=== PATIENT | female | born 1945 | race Caucasian/White ===

== ENCOUNTER 2019-10-19 18:10 | Emergency (ER) | payer BC, MEDICARE, OTHER ==
[~2019-10-19] VITALS: Ht 167.6 cm; Wt 59.1 kg
[~2019-10-19 18:10] MED LIST: ASPI81TA94 PO; CLA10T PO; CYCL-394 PO; DULO-31 PO; FAMO-1 PO; ILOP6TAB2 PO; IND25C PO; MORP30TA PO; MULT-32 PO; NABU-104 PO; NITR4.9S5 TL; NYST15CR30 TP; ONDA4SOL2 PO; OXYC-658 PO; PROP10TA10 PO; SENN8.6T19 PO; SIMV-42 PO; SUMA25TA35 PO; [UNRECOGNIZED DRUG - CODE] PO
--- NOTE | 2019-10-19 19:00 | NUR ---
PT IN HALLWAY AWAITING MD / UNABLE TO STRIGHT CATH IN HALLWAY AWAITING ROOM
[2019-10-19 19:40] LABS: BASOPHILS % (AUTO) 0.6 % (0-1); EOSINOPHILS # (AUTO) 0.3 X10'3 (0-0.9); EOSINOPHILS % (AUTO) 3.5 % (0-6); HEMATOCRIT 42.1 % (35.0-45.0); HEMOGLOBIN 14.1 g/dl (12.0-16.0); LYMPHOCYTES # (AUTO) 2.2 X10'3 (1.1-4.8); LYMPHOCYTES % (AUTO) 25.9 % (21-51); MEAN CORPUSCULAR HEMOGLOBIN 32.5 PG (27.0-31.0); MEAN CORPUSCULAR HGB CONC 33.6 g/dL (33.0-36.5); MEAN CORPUSCULAR VOLUME 96.8 FL (78-98); MONOCYTES # (AUTO) 0.9 X10'3 (0-0.9); MONOCYTES % (AUTO) 10.2 % (2-12); NEUTROPHILS # (AUTO) 5.1 X10'3 (1.8-7.7); NEUTROPHILS % (AUTO) 59.8 % (42-75); PLATELET COUNT 219 X10'3 (140-440); RED BLOOD COUNT 4.35 X10'6 (4.20-5.60); RED CELL DISTRIBUTION WIDTH 13.7 % (11.5-14.5); WHITE BLOOD COUNT 8.5 X10'3 (4.5-11.0)
[2019-10-19 19:51] LABS: ALANINE AMINOTRANSFERASE 15 U/L (12-78); ALBUMIN 3.7 G/DL (3.4-5.0); ALBUMIN/GLOBULIN RATIO 1.4 (1.1-1.5); ALKALINE PHOSPHATASE 97 IU/L (46-116); ANION GAP 4 (8-16); ASPARTATE AMINO TRANSFERASE 14 U/L (10-37); BILIRUBIN,TOTAL 0.5 MG/DL (0.1-1.0); BLOOD UREA NITROGEN 15 MG/DL (7-18); BUN/CREATININE RATIO 17.2 (6.6-38.0); CHLORIDE 106 MMOL/L (99-107); CREATININE 0.87 MG/DL (0.40-0.90); GLUCOSE 98 MG/DL (70-104); LIPASE 95 U/L (73-393); POTASSIUM 4.6 MMOL/L (3.5-5.1); SODIUM 142 MMOL/L (135-145); TOTAL CARBON DIOXIDE 32.4 MMOL/L (24-32); TOTAL PROTEIN 6.4 G/DL (6.4-8.2); eGFR 64 ML/MIN
--- NOTE | 2019-10-19 20:41 | NUR ---
PT STRAIGHT CATHED FOR URINE SAMPLE. PT TOLERATED FAIRLY WELL. PT REPOSITIONED AND RESTING QUIETLY IN BED
[2019-10-19 21:17] LABS: CLARITY,URINE CLEAR (Clear); COLOR,URINE STRAW (Yellow); GLUCOSE, URINE NEGATIVE (Neg); KETONES,URINE NEGATIVE (Neg); LEUKOCYTE ESTERASE ,URINE NEGATIVE (Neg); NITRITES, URINE NEGATIVE (Neg); OCCULT BLOOD,URINE NEGATIVE (Neg); PROTEIN,URINE NEGATIVE (Neg); UROBILINOGEN,URINE 0.2 E.U/dL (0.2-1.0)
[2019-10-19 21:22] LABS: UA COLLECTION TYPE STRAIGHT CATH
--- NOTE | 2019-10-19 22:54 | NUR ---
Called [facility], informed them Pt. is ready for discharge, [facility] will be sending Elizabeth to pick pt. up.
[2019-10-19 23:44] VITALS: BP 150/75
== END 2019-10-19 23:32 ==
LOC: ER 18:11
DX: M79.604 Pain in right leg (principal); G89.29 Other chronic pain; F03.90 Unspecified dementia, unspecified severity, without behavioral disturbance, psychotic disturbance, mood disturbance, and anxiety; F32.9 Major depressive disorder, single episode, unspecified; Z98.890 Other specified postprocedural states; Z79.82 Long term (current) use of aspirin; Z79.899 Other long term (current) drug therapy
CPT/HCPCS: 36415; 71045; 80053; 81003; 83690; 85025; 99284

== ENCOUNTER 2020-05-21 17:57 | Emergency (ER) | payer OTHER ==
[~2020-05-21] VITALS: Ht 167.6 cm; Wt 60.0 kg
--- NOTE | 2020-05-21 19:49 | NUR ---
pt resting quietly on gurney, waiting for vascular radiologist, gave pt warm blanket
[2020-05-21 21:00] VITALS: BP 121/86
--- NOTE | 2020-05-21 21:36 | NUR ---
carlos eduardo pineda staff aware pt is being dc'd and to use [facility] for transport
== END 2020-05-21 22:31 | disposition home or self-care (01) ==
LOC: ER 17:57
DX: G89.29 Other chronic pain (principal); M25.561 Pain in right knee; M25.551 Pain in right hip; F03.90 Unspecified dementia, unspecified severity, without behavioral disturbance, psychotic disturbance, mood disturbance, and anxiety; F32.9 Major depressive disorder, single episode, unspecified; Z98.890 Other specified postprocedural states; Z79.82 Long term (current) use of aspirin; Z79.899 Other long term (current) drug therapy
CPT/HCPCS: 73502; 73564; 93971; 99284

== ENCOUNTER 2020-05-23 17:28 | Emergency (ER) | payer OTHER ==
[~2020-05-23] VITALS: Ht 157.5 cm; Wt 5.0 kg
--- NOTE | 2020-05-23 18:35 | NUR ---
JOAQUÍN FROM [facility] FOR CONDITION REPORT.
--- NOTE | 2020-05-23 18:37 | NUR ---
REPORTS NEED TO "PEE". 2 PERSON MODERATE ASSIST TO GET OOB AND TO SIT ON BSC. ALSO REPROTS SHE HAS PAIN TO THE RIGHT LEG. PER DAY SHIFT RN, CARLOS, WHO SPOKE TO HER CARE FACILITY, PT IS ALWAY SCOMPLAINING OF PAIN TO HER RIGHT LEG. STABLE VS.
--- NOTE | 2020-05-23 18:45 | NUR ---
VOIDING 200 CC'S STRONG SMELLING URINE IN BSC. PROVIDED WARM BANKET. AWAITING ER .
--- NOTE | 2020-05-23 19:37 | NUR ---
PT JUST RETURNED FROM CT OF THE HEAD
--- NOTE | 2020-05-23 20:18 | NUR ---
PT TO BE DISCHARGED, [facility] CALLED FOR TRANSPORT BACK TO [facility].
[2020-05-23 20:49] VITALS: BP 119/63
== END 2020-05-23 20:51 | disposition home or self-care (01) ==
LOC: ER 17:28
DX: R29.6 Repeated falls (principal); M25.551 Pain in right hip; G89.29 Other chronic pain; F32.9 Major depressive disorder, single episode, unspecified; Z98.890 Other specified postprocedural states; Z79.82 Long term (current) use of aspirin; Z79.899 Other long term (current) drug therapy
CPT/HCPCS: 70450; 99284

== ENCOUNTER 2020-06-28 17:44 | Emergency (ER) | payer OTHER ==
[~2020-06-28] VITALS: Ht 162.6 cm; Wt 46.5 kg
--- NOTE | 2020-06-28 18:49 | NUR ---
carlos eduardo rogers pt uses [facility] for transport. [phone]
[2020-06-28 20:20] VITALS: BP 116/60
== END 2020-06-28 20:21 | disposition home or self-care (01) ==
LOC: ER 17:44
DX: S02.2XXA Fracture of nasal bones, initial encounter for closed fracture (principal); F03.90 Unspecified dementia, unspecified severity, without behavioral disturbance, psychotic disturbance, mood disturbance, and anxiety; G89.29 Other chronic pain; F32.9 Major depressive disorder, single episode, unspecified; Z98.890 Other specified postprocedural states; Z79.82 Long term (current) use of aspirin; Z79.899 Other long term (current) drug therapy; X58.XXXA Exposure to other specified factors, initial encounter; Y93.89 Activity, other specified; Y92.89 Other specified places as the place of occurrence of the external cause; Y99.8 Other external cause status
CPT/HCPCS: 70160; 99284

== ENCOUNTER → 2020-07-16 | Emergency (ER) | payer OTHER, BC ==
[~2020-07-16] VITALS: Ht 157.5 cm; Wt 45.0 kg
[~2020-07-16] MED LIST changes: +LORazepam 2 mg/ml vial IV ONE; +haloperidol 5mg tablet PO ONE; +haloperidol lactate 5mg/ml inj IM ONE; +traZODone 50mg tablet PO ONE; +traZODone 50mg tablet PO SCH; +ziprasidone IM 20mg inj **IM only IM ONE
[2020-07-16 14:48] LABS: BASOPHILS # (AUTO) 0.1 X10'3 (0-0.2); BASOPHILS % (AUTO) 0.7 % (0-1); EOSINOPHILS # (AUTO) 0.1 X10'3 (0-0.9); HEMATOCRIT 39.3 % (35.0-45.0); HEMOGLOBIN 13.3 g/dl (12.0-16.0); LYMPHOCYTES # (AUTO) 1.2 X10'3 (1.1-4.8); LYMPHOCYTES % (AUTO) 16.7 % (21-51); MEAN CORPUSCULAR HEMOGLOBIN 32.2 PG (27.0-31.0); MEAN CORPUSCULAR HGB CONC 33.8 g/dL (33.0-36.5); MEAN CORPUSCULAR VOLUME 95.3 FL (78-98); MONOCYTES # (AUTO) 0.9 X10'3 (0-0.9); NEUTROPHILS % (AUTO) 68.6 % (42-75); PLATELET COUNT 239 X10'3 (140-440); RED BLOOD COUNT 4.12 X10'6 (4.20-5.60); RED CELL DISTRIBUTION WIDTH 13.8 % (11.5-14.5); WHITE BLOOD COUNT 7.3 X10'3 (4.5-11.0)
[2020-07-16 15:01] LABS: ALANINE AMINOTRANSFERASE 25 U/L (12-78); ALBUMIN 3.5 G/DL (3.4-5.0); ALBUMIN/GLOBULIN RATIO 1.2 (1.1-1.5); ALKALINE PHOSPHATASE 106 IU/L (46-116); ANION GAP 7 (8-16); ASPARTATE AMINO TRANSFERASE 24 U/L (10-37); BILIRUBIN,TOTAL 0.4 MG/DL (0.1-1.0); BLOOD UREA NITROGEN 9 MG/DL (7-18); BUN/CREATININE RATIO 10.7 (6.6-38.0); CALCIUM 9.4 MG/DL (8.5-10.1); CHLORIDE 105 MMOL/L (99-107); CREATININE 0.84 MG/DL (0.40-0.90); GLUCOSE 90 MG/DL (70-104); POTASSIUM 3.5 MMOL/L (3.5-5.1); SODIUM 142 MMOL/L (135-145); TOTAL CARBON DIOXIDE 29.7 MMOL/L (24-32); TOTAL PROTEIN 6.5 G/DL (6.4-8.2); eGFR 66 ML/MIN
[2020-07-16 15:05] LABS: TROPONIN I < 0.04 NG/ML (0.0-0.05)
[2020-07-16 16:28] LABS: CLARITY,URINE CLEAR (Clear); COLOR,URINE YELLOW (Yellow); GLUCOSE, URINE NEGATIVE (Neg); KETONES,URINE 15 mg/dl (Neg); LEUKOCYTE ESTERASE ,URINE NEGATIVE (Neg); NITRITES, URINE NEGATIVE (Neg); OCCULT BLOOD,URINE NEGATIVE (Neg); PH,URINE 6.5 (4.8-8.0); PROTEIN,URINE NEGATIVE (Neg)
--- NOTE | 2020-07-16 16:28 | NUR ---
ANNEMARIE FROM [employer] CALLED. [phone].. INFORMED HER PT IRRITABLE. ANNEMARIE STATES, " SHE HAS BEEN WORSENING FOR THE PAST 2 MONTHS AND NOTHING HELPS, THE ADMINISTRATED WANTED HER TO BE SEEN IN ER. PSYCHIATRIST JOSE RAFAEL HALOPERIODOL ON JUN 21 WASNT WORKING. TRAZADONE AND ATIVAN KNOCKS HER OUT. CITALOPRAM 20MG QD STARTED. TREATED FOR UTI RECENTLY.
[2020-07-16 16:33] LABS: UA COLLECTION TYPE STRAIGHT CATH
[2020-07-16 18:38] VITALS: BP 136/76
--- NOTE | 2020-07-16 19:32 | NUR ---
[facility] called to check on patient. Informed nurse that pt is being discharged. [facility] advised to call [facility] for pt transport home.
== END | disposition home or self-care (01) ==
LOC: ER 13:51
DX: R45.1 Restlessness and agitation (principal); R41.0 Disorientation, unspecified; R44.3 Hallucinations, unspecified; F03.90 Unspecified dementia, unspecified severity, without behavioral disturbance, psychotic disturbance, mood disturbance, and anxiety; F32.9 Major depressive disorder, single episode, unspecified; G89.29 Other chronic pain; Z98.890 Other specified postprocedural states; Z79.82 Long term (current) use of aspirin; Z79.899 Other long term (current) drug therapy
CPT/HCPCS: 36415; 70450; 71045; 80053; 81003; 82140; 84484; 85025; 93005; 96372; 96374; 96376; 99285; J1630; J2060; J3486; 51701